=== PATIENT | male | born 1985 | race Caucasian/White ===

== ENCOUNTER 2017-11-25 12:44 | Emergency (ER) | payer SELFPAY | END 2017-11-25 14:55 | disposition home or self-care (01) | LOC: D.ER 12:44 | DX: S83.91XA Sprain of unspecified site of right knee, initial encounter (principal); Y93.74 Activity, frisbee; Y92.830 Public park as the place of occurrence of the external cause; F17.200 Nicotine dependence, unspecified, uncomplicated ==